=== PATIENT | female | born 1995 | race African-American/Black ===

== ENCOUNTER 2017-01-05 11:56 | Emergency (ER) | payer SELFPAY ==
[~2017-01-05] VITALS: Ht 170.2 cm; Wt 87.0 kg
[~2017-01-05 11:56] MED LIST: AMOX500T PO; MMW SS
[2017-01-05 11:58] VITALS: BP 133/74; PULSE 96; RESP 20; TEMP 98.9; O2SAT 99
--- NOTE | 2017-01-05 13:13 | PD ---
HPI Chief Complaint: Eye Problems/Injury Time Seen by Provider: 13:13 Travel History International Travel<30 days: No Contact w/Intl Traveler<30days: No Traveled to known affect area: No History of Present Illness HPI 21 year-old female presents to emergency department for evaluation of right eye redness and irritation, and itching worsening over the last 2 days. Patient reports no injury. States her ex-boyfriend recently had pink eye. She is concerned this may be it. No fevers or chills. No recent illnesses. No other symptoms to report. PFSH Past Medical History Medical History: Denies Significant Hx Social History Alcohol Use: No Tobacco Use: No Substance Use: No Allergies-Medications (Allergen,Severity, Reaction): Coded Allergies: No Known Allergies (Unverified , 01/05/17) Reported Meds & Prescriptions Reported Meds & Active Scripts Active Polytrim Opth Drops (Polymyxin/Trimethoprim Sulfate) 10,000-0.1 Unit/Ml-% Soln 1 Drop EACH EYE Q6HR Magic Mouthwash-Diphenhy Formula (Lidocaine/Diphenhydr/Alum/Mg/Simeth) Ml 5 Ml SS Q4 MAGIC MOUTHWASH=MIX 1/3 VISCOUS LIDOCAINE(80 ML), 1/3 MAALOX(80 ML),AND 1/3 BENADRYL(80 ML) TO EQUAL 240 ML TOTAL VOLUME. Amoxicillin 500 Mg Cap 500 Mg PO TID Review of Systems Except as stated in HPI: all other systems reviewed are Neg Physical Exam Narrative GENERAL: Well-nourished, well-developed male patient in no acute distress SKIN: Warm and dry. HEAD: Normocephalic. EYES: No scleral icterus. Injection of the right sclera. EOMI. PERRLA. No foreign body identified. No increased uptake on fluorescein examination. NECK: Supple, trachea midline. No JVD or lymphadenopathy. CARDIOVASCULAR: Regular rate and rhythm without murmurs, gallops, or rubs. RESPIRATORY: Breath sounds equal bilaterally. No accessory muscle use. Data Data Last Documented VS Vital Signs Date Time Temp Pulse Resp B/P Pulse Ox O2 Delivery O2 Flow Rate FiO2 01/05/17 11:58 98.9 96 20 133/74 99 Room Air MDM Medical Decision Making Medical Screen Exam Complete: Yes Emergency Medical Condition: Yes Medical Record Reviewed: Yes Differential Diagnosis Conjunctivitis viral versus bacterial versus allergic versus foreign body versus corneal abrasion Narrative Course 21 year-old female presents to emergency department for evaluation. Physical exam is consistent with conjunctivitis. Patient be started on Polytrim drops. Encouraged to follow-up with primary care provider and return immediately with any acute worsening of symptoms. Diagnosis Primary Impression: Conjunctivitis Qualified Code: H10.31 - Acute conjunctivitis of right eye, unspecified acute conjunctivitis type Referrals: Primary Care Physician Patient Instructions: Conjunctivitis (ED), General Instructions Departure Forms: Tests/Procedures, Work Release Enter return to work date: Jan 07, 2017 Additional Instructions: Avoid rubbing your eye Cold compresses to reduce irritation Warm compresses to remove crusting Frequent handwashing Follow-up with your primary care provider Return immediately to the emergency department with any acute worsening of symptoms Med/Other Pt SpecificInfo: Prescription(s) given Scripts Polymyxin B-Trimethoprim Opth Drops (Polytrim Opth Drops)10,000-0.1 Unit/Ml-% Soln1 Drop EACH EYE Q6HR #1 BOTTLE Ref 0 Prov:Viktoriya Escalante 01/05/17 Disposition: 01 DISCHARGE HOME Condition: Stable Viktoriya Escalante Jan 05, 2017 13:13
[2017-01-05] MEDS ORDERED: POLY10O EACH EYE (13:28)
== END 2017-01-05 13:54 | disposition home or self-care (01) ==
LOC: NEPB 11:56
DX: H10.31 Unspecified acute conjunctivitis, right eye (principal)
CPT/HCPCS: 99282

== ENCOUNTER 2017-01-20 15:33 | Emergency (ER) | payer SELFPAY ==
[~2017-01-20] VITALS: Ht 172.7 cm; Wt 105.0 kg
[~2017-01-20 15:33] MED LIST changes: +POLY10O EACH EYE
[2017-01-20 15:34] VITALS: BP 145/60; PULSE 82; RESP 16; TEMP 98.6; O2SAT 99
--- NOTE | 2017-01-20 16:27 | PD ---
HPI Chief Complaint: Injury Time Seen by Provider: 16:24 Travel History International Travel<30 days: No Contact w/Intl Traveler<30days: No Traveled to known affect area: No History of Present Illness HPI Patient is a 22-year-old female presenting to emergency for evaluation of left ankle pain. Patient states she tripped when she missed a step on Thursday injuring her ankle. She denies any head injury, loss of consciousness, abdominal pain, chest pain, back pain. She reports the pain as a 7 on a 10 when she is ambulating. Patient states she's been limping since Thursday. [facility] Past Medical History Medical History: Denies Significant Hx ?: Not LMP: 01/08/17 Social History Alcohol Use: No Tobacco Use: No Substance Use: No Allergies-Medications (Allergen,Severity, Reaction): Coded Allergies: No Known Allergies (Unverified , 01/05/17) Reported Meds & Prescriptions Reported Meds & Active Scripts Active Ibuprofen 800 Mg Tab 800 Mg PO Q6HR PRN Tramadol (Tramadol HCl) 50 Mg Tab 50 Mg PO Q6H PRN Polytrim Opth Drops (Polymyxin/Trimethoprim Sulfate) 10,000-0.1 Unit/Ml-% Soln 1 Drop EACH EYE Q6HR Magic Mouthwash-Diphenhy Formula (Lidocaine/Diphenhydr/Alum/Mg/Simeth) Ml 5 Ml SS Q4 MAGIC MOUTHWASH=MIX 1/3 VISCOUS LIDOCAINE(80 ML), 1/3 MAALOX(80 ML),AND 1/3 BENADRYL(80 ML) TO EQUAL 240 ML TOTAL VOLUME. Amoxicillin 500 Mg Cap 500 Mg PO TID Review of Systems Except as stated in HPI: all other systems reviewed are Neg Musculoskeletal: Positive: Myalgias, Edema, Pain Physical Exam Narrative GENERAL: Well-nourished, well-developed patient. SKIN: Warm and dry. HEAD: Normocephalic. EYES: No scleral icterus. No injection or drainage. NECK: Supple, trachea midline. No JVD or lymphadenopathy. CARDIOVASCULAR: Regular rate and rhythm without murmurs, gallops, or rubs. RESPIRATORY: Breath sounds equal bilaterally. No accessory muscle use. GASTROINTESTINAL: Abdomen soft, non-tender, nondistended. MUSCULOSKELETAL: No cyanosis, mild edema noted to the dorsal aspect of the left foot and lateral aspect of left ankle. Positive pedal pulse, brisk less than 3 second capillary refill. BACK: Nontender without obvious deformity. No CVA tenderness. Data Data Last Documented VS Vital Signs Date Time Temp Pulse Resp B/P Pulse Ox O2 Delivery O2 Flow Rate FiO2 01/20/17 15:34 98.6 82 16 145/60 99 Room Air Orders Ankle, Complete (Min0cbt) (01/20/17 ) Splinting (01/20/17 ) Crutches (01/20/17 16:32) Fiberglass Short Leg Splint Ad (01/20/17 ) MDM Medical Decision Making Medical Screen Exam Complete: Yes Emergency Medical Condition: Yes Interpretation(s) Vital Signs Date Time Temp Pulse Resp B/P Pulse Ox O2 Delivery O2 Flow Rate FiO2 01/20/17 15:34 98.6 82 16 145/60 99 Room Air Differential Diagnosis Sprain versus strain versus fracture versus dislocation versus other Narrative Course Patient is a 22-year-old female presenting to emergency for evaluation of left ankle pain after sustaining a mechanical fall on Thursday. Imaging ordered and pending. Patient is resting comfortably. Imaging shows an acute fracture involving the base of the left fifth metatarsal. Patient will be placed in a posterior short leg splint and given crutches. She was advised that she will need to follow-up with the orthopedic surgeon or porcelain slusher for further evaluation management in one week. She was encouraged to elevate extremity to help with the swelling. She is encouraged to avoid driving or operating heavy machinery while taking narcotic pain medication. Patient verbalized understanding of these instructions. She was advised to return to emergency department for any new or worsening symptoms. Patient is stable for discharge. Diagnosis Primary Impression: Foot fracture, left Qualified Code: S92.902A - Foot fracture, left, closed, initial encounter Referrals: Renea Harrell DPM Timing Inspector 1 week Patient Instructions: Foot Fracture in Adults (ED), General Instructions Additional Instructions: Follow-up with porcelain slusher Follow-up with a primary care doctor Return to emergency department for any new or worsening symptoms Take medications as directed Do not drive or operate heavy machinery while taking narcotic pain medication Med/Other Pt SpecificInfo: Prescription(s) given Scripts Tramadol 50 Mg Tab50 Mg PO Q6H PRN (PAIN) #12 TAB Ref 0 Prov:Bertrand Etienne MD 01/20/17 Ibuprofen 800 Mg Zgm190 Mg PO Q6HR PRN (PAIN) #40 TAB Ref 0 Prov:Mireille Waters 01/20/17 Disposition: 01 DISCHARGE HOME Condition: Stable Mirielle Waters Jan 20, 2017 16:27
--- NOTE | 2017-01-20 16:29 | RADRPT ---
EXAM DATE/TIME: 01/20/2017 15:54 [facility] COMPARISON: No previous studies available for comparison. INDICATIONS : Left ankle pain after trip and fall. MEDICAL HISTORY : None. SURGICAL HISTORY : None. ENCOUNTER: Initial ACUITY: 3 days PAIN SCORE: 8/10 LOCATION: Left anterior lateral ankle. FINDINGS: There is an acute fracture involving the base of the left fifth metatarsal. The ankle mortise is int act. The distal tibia and fibula are also intact. CONCLUSION: Acute fracture involving the base of the left fifth metatarsal. Baltazar Souza MD on January 20, 2017 at 16:24 Board Certified Radiologist. This report was verified electronically.
[2017-01-20] MEDS ORDERED: IBUP800T23 PO ×2 (17:15→17:32)
[2017-01-20] MEDS ORDERED: TRAM50TA PO ×3 (17:15→17:34)
== END 2017-01-20 18:03 | disposition home or self-care (01) ==
LOC: NEPB 15:33
DX: S92.352A Displaced fracture of fifth metatarsal bone, left foot, initial encounter for closed fracture (principal); W01.0XXA Fall on same level from slipping, tripping and stumbling without subsequent striking against object, initial encounter
CPT/HCPCS: 29515; 73610; 99283; E0113

== ENCOUNTER 2017-12-03 19:56 | Emergency (ER) | payer SELFPAY ==
[~2017-12-03] VITALS: Ht 172.7 cm; Wt 90.0 kg
[~2017-12-03 19:56] MED LIST changes: +IBUP1TAB7 PO; +TRAM50TA PO
[2017-12-03 19:57] VITALS: BP 138/75; PULSE 98; RESP 16; TEMP 99.3; O2SAT 99
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
== END 2017-12-04 | disposition home or self-care (01) ==
LOC: NEPE 19:56
DX: S46.911A Strain of unspecified muscle, fascia and tendon at shoulder and upper arm level, right arm, initial encounter (principal); Y09 Assault by unspecified means; Z32.02 Encounter for pregnancy test, result negative
CPT/HCPCS: 73030; 84703; 99283